=== PATIENT | female | born 1995 | race Caucasian/White ===

== ENCOUNTER 2023-03-15 09:24 | Emergency (ER) | payer OTHER ==
[~2023-03-15] VITALS: Ht 162.6 cm; Wt 93.0 kg
== END 2023-03-15 12:04 | disposition home or self-care (01) ==
LOC: ER 09:24
DX: S40.871A Other superficial bite of right upper arm, initial encounter (principal); W54.0XXA Bitten by dog, initial encounter; Y93.89 Activity, other specified; Y92.89 Other specified places as the place of occurrence of the external cause; Z91.013 Allergy to seafood